=== PATIENT | male | born 1955 | race Asian ===

== ENCOUNTER 2016-11-30 14:12 | Outpatient (CLI) | payer BC ==
[2016-11-30 13:17] LABS: BILIRUBIN,URINE NEGATIVE (NEGATIVE)
[2016-11-30 13:51] LABS: WBC,URINE 0-3 /HPF (0-3)
[2016-11-30 13:52] LABS: UR CULTURE IF IND NOT INDICATED
== END 2016-11-30 14:13 | disposition home or self-care (01) ==
LOC: LAB.R 14:12
PROVIDERS: ATTEND Family Medicine
DX: R31.9 Hematuria, unspecified (principal)
CPT/HCPCS: 81001; 87086

== ENCOUNTER 2018-05-04 11:15 | Outpatient (CLI) | payer BC ==
[2018-05-04 19:17] LABS: BASOPHILS % (AUTO) 0.6 %; EOSINOPHILS # (AUTO) 0.8 10^3/uL (0.0-0.7); EOSINOPHILS % (AUTO) 10.6 %; HGB - HEMOGLOBIN 13.1 g/dL (14.0-18.0); LYMPHOCYTES # (AUTO) 2.9 10^3/uL (1.5-3.5); LYMPHOCYTES % (AUTO) 39.1 %; MEAN CORPUSCULAR HGB CONC 32.7 g/dL (32.0-36.0); MEAN CORPUSCULAR VOLUME 97.9 fL (80.0-94.0); MEAN PLATELET VOLUME 9.5 fL (7.4-11.4); MONOCYTES # (AUTO) 0.5 10^3/uL (0.0-1.0); MONOCYTES % (AUTO) 7.2 %; NEUTROPHILS # (AUTO) 3.1 10^3/uL (1.5-6.6); NEUTROPHILS % (AUTO) 42.5 %; PLT - PLATELET COUNT 249 10^3/uL (130-450); RED BLOOD COUNT 4.11 10^6/uL (4.70-6.10); RED CELL DISTRIBUTION WIDTH 12.8 % (12.0-15.0); WHITE BLOOD COUNT 7.4 x10^3/uL (4.8-10.8)
[2018-05-04 19:55] LABS: ALBUMIN 4.2 g/dL (3.2-5.5); ALBUMIN/GLOBULIN RATIO 1.3 (1.0-2.2); ALKALINE PHOSPHATASE 87 IU/L (42-121); ALT ALANINE AMINOTRANSFERASE 25 IU/L (10-60); AST ASPARTATE AMINOTRANSFERASE 27 IU/L (10-42); BILIRUBIN,TOTAL 0.7 mg/dL (0.2-1.0); BUN - BLOOD UREA NITROGEN 21 mg/dL (6-20); CALCIUM 9.2 mg/dL (8.5-10.3); CARBON DIOXIDE - CO2 29 mmol/L (21-32); CHLORIDE 102 mmol/L (101-111); CHOL/HDL RATIO 3.3 (<5.0); CHOLESTEROL 196 mg/dL; CREATININE 0.7 mg/dL (0.6-1.2); GFR - MDRD 114 (>89); GLUCOSE 80 mg/dL (70-100); HDL CHOLESTEROL 59 mg/dL; LDL CHOLESTEROL,CALCULATED 109 mg/dL; LDL/HDL RATIO 1.8 (<3.6); SODIUM 139 mmol/L (135-145); TOTAL PROTEIN 7.4 g/dL (6.7-8.2); VLDL CHOLESTEROL 28 mg/dL
== END 2018-05-04 23:59 | disposition home or self-care (01) ==
LOC: LAB.WCP 11:15
PROVIDERS: ATTEND Family Medicine
DX: I10 Essential (primary) hypertension (principal); Z12.5 Encounter for screening for malignant neoplasm of prostate
CPT/HCPCS: 36415; 80053; 80061; 83721; 84153; 84443; 85025